=== PATIENT | female | born 1985 | race Hispanic/Latino ===

== ENCOUNTER 2021-05-16 13:23 | Inpatient (IN) | payer SELFPAY ==
[~2021-05-16 13:23] MED LIST: Heparin 10,000 UNITS/ 10 ML VIAL ONE
[2021-05-16 14:13] LABS: #Eosinphils 0.2 thou/uL (0.0-0.7); #Lymphocytes 1.6 thou/uL (1.20-3.40); #Monocytes 0.5 thou/uL (0.11-0.59); #Neutrophils 5.1 thou/uL (1.40-6.50); %Basophils 0.3 % (0.0-1.0); %Eosinophils 2.8 % (0.0-10.0); %Lymphocytes 21.9 % (21.0-51.0); %Monocytes 6.6 % (0.0-10.0); %Neutrophils 68.5 % (42.0-75.0); Mean Corpuscular HGB CONC 31.3 g/dL (32.0-36.0); Mean Corpuscular Volume 92.8 fL (78.0-98.0); Mean Platelet Volume 7.5 fL (7.4-10.4); Platelet Count 442 thou/uL (130-400); RBC Distribution Width 12.9 % (11.5-14.5); Red Blood Cell (RBC) Count 3.77 mill/uL (4.20-5.40); White Blood Cell (WBC) Count 7.4 thou/uL (4.8-10.8)
[2021-05-16 14:24] LABS: Phosphorus 4.5 mg/dL (2.3-4.7)
[2021-05-16 14:38] LABS: ALT (SGPT) 16 U/L (8-55); AST (SGOT) 20 U/L (5-34); Albumin 3.8 g/dL (3.5-5.0); Alkaline Phosphatase 173 U/L (40-110); Anion Gap 21 mmol/L (10-20); BUN (Urea Nitrogen) 96 mg/dL (7.0-18.7); Bilirubin, Total 0.5 mg/dL (0.2-1.2); Calc. Creatinine Clearance 0 mL/min (70-130); Carbon Dioxide 24 mmol/L (22-29); Chloride 91 mmol/L (98-107); Globulin 3.3 g/dL (2.4-3.5); Glucose 271 mg/dL (70-105); Magnesium 6.1 mg/dL (1.6-2.6); Potassium 6.2 mmol/L (3.5-5.1); Protein, Total 7.1 g/dL (6.0-8.3); Sodium 130 mmol/L (136-145)
[2021-05-16] MEDS ORDERED: Acetaminophen 325 MG TAB PO PRN (17:05)
[2021-05-16] MEDS ORDERED: Dextrose 50% Abboject 50 ML SYRINGE SLOW IVP PRN (17:05)
[2021-05-16] MEDS ORDERED: Senokot S 8.6-50 MG TAB PO PRN (17:05)
[2021-05-16] MEDS ORDERED: Calcium Carbonate 500 MG ChewTAB PO PRN (17:05)
[2021-05-16] MEDS ORDERED: Bisacodyl 10 MG SUPP PR PRN (17:05)
[2021-05-16] MEDS ORDERED: Dextrose 5% in Water 1,000 ML IV PRN (17:05)
[2021-05-16] MEDS ORDERED: Ondansetron PF 4 MG/2 ML Vial IVP PRN (17:05)
[2021-05-16] MEDS ORDERED: Guaifenesin DM 100-10/5 ML UDCUP PO PRN (17:05)
[2021-05-16] MEDS ORDERED: HumaLOG 300 UNITS/3 ML VIAL SC PRN (17:05)
[2021-05-16 17:29] LABS: SARS-CoV-2 NAA Rapid Test DETECTED (NotDetected)
[2021-05-16] MEDS ORDERED: Insulin Glargine 15 UNITS in Pre-Filled Syringe 1 EACH SC SCH (21:00)
[2021-05-16 22:24] LABS: HBCM Index 0.09 S/CO (0-0.79); HBSAg Index 0.24 S/CO (0-0.99); Hep B Surf Ag Non-Reactive S/CO (NonReactive); Hepatitis B Core IgM Abs Non-Reactive (NonReactive)
[2021-05-16 22:25] LABS: HBSAB Concentration Greater than 1000.00 mIU/mL; Hep B Surf AB Reactive (NonReactive)
[2021-05-16] MEDS ORDERED: hydrALAZINE 20 MG/ML VIAL SLOW IVP PRN (22:39)
[2021-05-17] MEDS ORDERED: HumaLOG 300 UNITS/3 ML VIAL ONE (00:05)
[2021-05-17] MEDS: HumaLOG 300 UNITS/3 ML VIAL SC PRN ×2 (00:34→11:29)
[2021-05-17] MEDS: Gabapentin 100 MG CAP PO SCH ×3 (01:49→22:08)
[2021-05-17] MEDS: Lantus 1000 UNITS/10 ML VIAL SC SCH ×3 (01:49→21:19)
[2021-05-17 04:38] LABS: Albumin 3.6 g/dL (3.5-5.0); Anion Gap 20 mmol/L (10-20); BUN (Urea Nitrogen) 33 mg/dL (7.0-18.7); BUN/Creatinine Ratio 4.95; Calc. Creatinine Clearance 0 mL/min (70-130); Calcium 8.1 mg/dL (7.8-10.44); Carbon Dioxide 22 mmol/L (22-29); Chloride 99 mmol/L (98-107); Glucose 108 mg/dL (70-105); Potassium 5.3 mmol/L (3.5-5.1); Sodium 136 mmol/L (136-145)
[2021-05-17 04:44] LABS: Hemoglobin A1c Greater than 14.0 % (4.0-6.0)
[2021-05-17 05:26] LABS: #Basophils 0.1 thou/uL (0.0-0.2); #Eosinphils 0.4 thou/uL (0.0-0.7); #Lymphocytes 1.6 thou/uL (1.20-3.40); #Monocytes 0.5 thou/uL (0.11-0.59); #Neutrophils 3.6 thou/uL (1.40-6.50); %Basophils 0.9 % (0.0-1.0); %Eosinophils 6.1 % (0.0-10.0); %Lymphocytes 26.3 % (21.0-51.0); %Neutrophils 58.7 % (42.0-75.0); Hemoglobin 10.5 g/dL (12.0-16.0); Mean Corpuscular HGB CONC 31.6 g/dL (32.0-36.0); Mean Corpuscular Hemoglobin 29.5 pg (27.0-31.0); Mean Corpuscular Volume 93.3 fL (78.0-98.0); Mean Platelet Volume 7.4 fL (7.4-10.4); Platelet Count 356 thou/uL (130-400); RBC Distribution Width 12.6 % (11.5-14.5); Red Blood Cell (RBC) Count 3.57 mill/uL (4.20-5.40); White Blood Cell (WBC) Count 6.1 thou/uL (4.8-10.8)
[2021-05-17] MEDS ORDERED: Enoxaparin Sodium 30 MG/0.3 ML SYRINGE ONE (08:21)
[2021-05-17] MEDS ORDERED: NIFEdipine XL 30 MG TAB ONE (08:21)
[2021-05-17] MEDS ORDERED: Dextrose 50% Abboject 50 ML SYRINGE ONE ×2 (08:34)
[2021-05-17] MEDS: NIFEdipine XL 30 MG TAB PO SCH (08:49)
[2021-05-17] MEDS: Enoxaparin Sodium 30 MG/0.3 ML SYRINGE SC SCH (08:50)
[2021-05-17] MEDS ORDERED: Heparin 10,000 UNITS/ 10 ML VIAL ONE (09:46)
[2021-05-17] MEDS ORDERED: Acetaminophen 325 MG TAB ONE (20:25)
[2021-05-17] MEDS ORDERED: Metoprolol Tartrate 25 MG TAB PO SCH (21:00)
[2021-05-17] MEDS ORDERED: Metoprolol Tartrate 25 MG TAB ONE (21:03)
[2021-05-18] MEDS: HumaLOG 300 UNITS/3 ML VIAL SC PRN (06:42)
[2021-05-18 07:26] VITALS: BMI 25.5
[2021-05-18] MEDS: Gabapentin 100 MG CAP PO SCH (08:59)
[2021-05-18] MEDS: NIFEdipine XL 30 MG TAB PO SCH (08:59)
[2021-05-18] MEDS: Enoxaparin Sodium 30 MG/0.3 ML SYRINGE SC SCH (08:59)
[2021-05-18] MEDS ORDERED: Metoprolol Tartrate 50 MG TAB PO SCH (09:00)
[2021-05-18] MEDS: Lantus 1000 UNITS/10 ML VIAL SC SCH (09:01)
[2021-05-18 12:30] VITALS: BP 133/79; TEMP 98.3
== END 2021-05-18 13:21 | disposition home or self-care (01) | DRG 640 ==
LOC: ERS 13:23 → ERHOLD 15:25 → OBSVTOIN 05-17 16:46 → T4-A 05-17 23:42
PROVIDERS: ADMIT Internal Medicine; ATTEND Internal Medicine
PROC: 5A1D70Z Performance of Urinary Filtration, Intermittent, Less than 6 Hours Per Day (ICD-10-PCS; principal; 2021-05-16)
PROC: 8E0ZXY6 Isolation (ICD-10-PCS; 2021-05-17)
DX: E87.5 Hyperkalemia (principal); N18.6 End stage renal disease; U07.1 COVID-19; I12.0 Hypertensive chronic kidney disease with stage 5 chronic kidney disease or end stage renal disease; N25.81 Secondary hyperparathyroidism of renal origin; E87.70 Fluid overload, unspecified; E11.22 Type 2 diabetes mellitus with diabetic chronic kidney disease; I07.1 Rheumatic tricuspid insufficiency; E11.42 Type 2 diabetes mellitus with diabetic polyneuropathy; D63.1 Anemia in chronic kidney disease; E11.649 Type 2 diabetes mellitus with hypoglycemia without coma; Z99.2 Dependence on renal dialysis; Z91.15 Patient's noncompliance with renal dialysis; Z79.899 Other long term (current) drug therapy; Z79.4 Long term (current) use of insulin; Z83.3 Family history of diabetes mellitus; Z82.49 Family history of ischemic heart disease and other diseases of the circulatory system
CPT/HCPCS: 36415; 36416; 71045; 80053; 80069; 83036; 83735; 83880; 84100; 84484; 85025; 86705; 86706; 87340; 93005; 96372; 96374; G0378; J1644; J1650; J1815; J7070; U0002

== ENCOUNTER 2021-06-12 22:00 | Inpatient (IN) | payer MEDICAID ==
[2021-06-12 23:27] LABS: #Eosinphils 0.1 thou/uL (0.0-0.7); #Lymphocytes 0.8 thou/uL (1.20-3.40); #Monocytes 0.4 thou/uL (0.11-0.59); #Neutrophils 11.1 thou/uL (1.40-6.50); %Basophils 0.3 % (0.0-1.0); %Eosinophils 0.6 % (0.0-10.0); %Lymphocytes 6.6 % (21.0-51.0); %Monocytes 3.3 % (0.0-10.0); %Neutrophils 89.2 % (42.0-75.0); Hemoglobin 8.4 g/dL (12.0-16.0); Mean Corpuscular Hemoglobin 29.5 pg (27.0-31.0); Mean Corpuscular Volume 92.1 fL (78.0-98.0); Mean Platelet Volume 9.2 fL (7.4-10.4); Platelet Count 303 thou/uL (130-400); RBC Distribution Width 13.4 % (11.5-14.5); Red Blood Cell (RBC) Count 2.83 mill/uL (4.20-5.40); White Blood Cell (WBC) Count 12.5 thou/uL (4.8-10.8)
[2021-06-12 23:35] LABS: Hemoglobin A1c Greater than 14.0 % (4.0-6.0)
[2021-06-12 23:46] LABS: ALT (SGPT) 120 U/L (8-55); AST (SGOT) 102 U/L (5-34); Albumin 4.3 g/dL (3.5-5.0); Alkaline Phosphatase 264 U/L (40-110); Anion Gap 28 mmol/L (10-20); Bilirubin, Total 0.8 mg/dL (0.2-1.2); Calc. Creatinine Clearance 0 mL/min (70-130); Calcium 7.7 mg/dL (7.8-10.44); Carbon Dioxide 17 mmol/L (22-29); Chloride 98 mmol/L (98-107); Globulin 3.4 g/dL (2.4-3.5); Glucose 63 mg/dL (70-105); Lipase 58 U/L (8-78); Magnesium 2.8 mg/dL (1.6-2.6); Protein, Total 7.7 g/dL (6.0-8.3); Sodium 135 mmol/L (136-145)
[2021-06-12 23:55] LABS: Potassium 7.9 mmol/L (3.5-5.1)
[2021-06-12 23:58] LABS: BUN (Urea Nitrogen) 114 mg/dL (7.0-18.7)
[2021-06-13] MEDS ORDERED: Dextrose 50% Abboject 50 ML SYRINGE ONE (00:14)
[2021-06-13] MEDS ORDERED: Insulin Regular 300 UNITS/3 ML VIAL ONE (00:14)
[2021-06-13] MEDS ORDERED: Calcium Chloride 1 GM/10 ML Abboject SYRINGE ONE (00:14)
[2021-06-13 00:24] LABS: INR-International Normal Ratio 1.3; PTT 34.3 sec (22.9-36.1); Prothrombin Time 16.1 sec (12.0-14.7)
[2021-06-13] MEDS ORDERED: Atropine Sulfate 1 mg/10 ml Syringe ONE (00:41)
[2021-06-13] MEDS ORDERED: Ondansetron PF 4 MG/2 ML Vial ONE (00:43)
[2021-06-13] MEDS ORDERED: Albuterol Sulfate 2.5 mg/0.5 ml Neb ONE (00:58)
[2021-06-13] MEDS ORDERED: Albuterol Sulfate 2.5 mg/3 ml Neb ONE (00:58)
[2021-06-13] MEDS ORDERED: Ondansetron PF 4 MG/2 ML Vial IVP PRN (01:15)
[2021-06-13] MEDS ORDERED: Dextrose 50% Abboject 50 ML SYRINGE SLOW IVP PRN (01:17)
[2021-06-13] MEDS ORDERED: Dextrose 5% in Water 1,000 ML IV PRN ×2 (01:17→05:00)
[2021-06-13] MEDS ORDERED: Acetaminophen 500 MG TAB PO PRN (01:23)
[2021-06-13 03:15] VITALS: BMI 266909.6
[2021-06-13 03:28] LABS: SARS-CoV-2 NAA Rapid Test Not Detected (NotDetected)
[2021-06-13] MEDS ORDERED: HumaLOG 300 UNITS/3 ML VIAL SC PRN (05:00)
[2021-06-13] MEDS ORDERED: Dextrose 50% Abboject 50 ML SYRINGE IVP PRN (05:00)
[2021-06-13] MEDS: EPOETIN ALFA-EPBX (ESRD) 10,000 UNIT/ML VIAL IVP SCH (07:51)
[2021-06-13] MEDS: Heparin 5,000 UNITS/ML VIAL SC SCH ×2 (07:51→20:57)
[2021-06-13 08:09] LABS: #Monocytes 0.5 thou/uL (0.11-0.59); #Neutrophils 8.7 thou/uL (1.40-6.50); %Basophils 0.2 % (0.0-1.0); %Eosinophils 0.3 % (0.0-10.0); %Monocytes 4.6 % (0.0-10.0); %Neutrophils 84.9 % (42.0-75.0); Hemoglobin 7.3 g/dL (12.0-16.0); Mean Corpuscular HGB CONC 31.5 g/dL (32.0-36.0); Mean Corpuscular Hemoglobin 28.7 pg (27.0-31.0); Mean Corpuscular Volume 91.1 fL (78.0-98.0); Mean Platelet Volume 8.7 fL (7.4-10.4); Platelet Count 271 thou/uL (130-400); RBC Distribution Width 13.2 % (11.5-14.5); Red Blood Cell (RBC) Count 2.54 mill/uL (4.20-5.40); White Blood Cell (WBC) Count 10.2 thou/uL (4.8-10.8)
[2021-06-13 08:31] LABS: Glucose 178 mg/dL (70-105)
[2021-06-13 08:37] LABS: Troponin I 0.012 ng/mL (< 0.028)
[2021-06-13] MEDS ORDERED: Heparin 10,000 UNITS/ 10 ML VIAL ONE (08:40)
[2021-06-13 08:44] LABS: ALT (SGPT) 89 U/L (8-55); AST (SGOT) 53 U/L (5-34); Albumin 3.5 g/dL (3.5-5.0); Alkaline Phosphatase 206 U/L (40-110); Anion Gap 16 mmol/L (10-20); BUN (Urea Nitrogen) 40 mg/dL (7.0-18.7); Bilirubin, Total 0.6 mg/dL (0.2-1.2); Calc. Creatinine Clearance 13 mL/min (70-130); Calcium 8.4 mg/dL (7.8-10.44); Carbon Dioxide 26 mmol/L (22-29); Chloride 99 mmol/L (98-107); Globulin 3.4 g/dL (2.4-3.5); Glucose 179 mg/dL (70-105); Potassium 4.2 mmol/L (3.5-5.1); Protein, Total 6.9 g/dL (6.0-8.3); Sodium 137 mmol/L (136-145)
[2021-06-13 08:49] LABS: HBSAg Index 0.23 S/CO (0-0.99); Hep B Core Total Ab Non-Reactive (NonReactive); Hep B Core Total Index 0.07 S/CO (0-0.79); Hep B Surf Ag Non-Reactive S/CO (NonReactive); Hep C IgG Ab Non-Reactive (NonReactive); Hep C Index 0.25 S/CO (0-0.79)
[2021-06-13 09:03] LABS: HBSAB Concentration 930.54 mIU/mL; Hep B Surf AB Reactive (NonReactive)
[2021-06-13] MEDS: HumaLOG 300 UNITS/3 ML VIAL SC PRN (09:48)
[2021-06-13 11:58] LABS: Troponin I 0.014 ng/mL (< 0.028)
[2021-06-13 17:15] LABS: Glucose 127 mg/dL (70-105)
[2021-06-14] MEDS: HumaLOG 300 UNITS/3 ML VIAL SC PRN ×3 (05:47→21:28)
[2021-06-14 08:19] LABS: #Basophils 0.1 thou/uL (0.0-0.2); #Eosinphils 0.2 thou/uL (0.0-0.7); #Lymphocytes 1.3 thou/uL (1.20-3.40); #Monocytes 0.8 thou/uL (0.11-0.59); %Basophils 0.7 % (0.0-1.0); %Eosinophils 1.9 % (0.0-10.0); %Lymphocytes 15.4 % (21.0-51.0); %Monocytes 9.4 % (0.0-10.0); %Neutrophils 72.5 % (42.0-75.0); Hemoglobin 6.9 g/dL (12.0-16.0); Mean Corpuscular HGB CONC 31.2 g/dL (32.0-36.0); Mean Corpuscular Hemoglobin 28.9 pg (27.0-31.0); Mean Corpuscular Volume 92.6 fL (78.0-98.0); Mean Platelet Volume 8.9 fL (7.4-10.4); Platelet Count 261 thou/uL (130-400); RBC Distribution Width 13.2 % (11.5-14.5); Red Blood Cell (RBC) Count 2.39 mill/uL (4.20-5.40); White Blood Cell (WBC) Count 8.3 thou/uL (4.8-10.8)
[2021-06-14 08:49] LABS: ALT (SGPT) 66 U/L (8-55); AST (SGOT) 29 U/L (5-34); Albumin 3.3 g/dL (3.5-5.0); Alkaline Phosphatase 175 U/L (40-110); Anion Gap 19 mmol/L (10-20); BUN (Urea Nitrogen) 61 mg/dL (7.0-18.7); Bilirubin, Total 0.5 mg/dL (0.2-1.2); Calc. Creatinine Clearance 9 mL/min (70-130); Calcium 8.2 mg/dL (7.8-10.44); Carbon Dioxide 24 mmol/L (22-29); Chloride 100 mmol/L (98-107); Globulin 2.9 g/dL (2.4-3.5); Glucose 249 mg/dL (70-105); Potassium 5.6 mmol/L (3.5-5.1); Protein, Total 6.2 g/dL (6.0-8.3); Sodium 137 mmol/L (136-145)
[2021-06-14] MEDS ORDERED: FLU VACC QS2021-22(6MOS UP)/PF 60 MCG/0.5 ML SYRINGE IM ONE (09:00)
[2021-06-14] MEDS ORDERED: Ferrous Sulfate 325 MG TAB PO SCH (10:15)
[2021-06-14] MEDS: Heparin 5,000 UNITS/ML VIAL SC SCH ×2 (10:25→21:28)
[2021-06-14 10:46] LABS: Glucose 292 mg/dL (70-105)
[2021-06-14] MEDS ORDERED: Heparin 10,000 UNITS/ 10 ML VIAL ONE (11:44)
[2021-06-14] MEDS ORDERED: hydrALAZINE 20 MG/ML VIAL SLOW IVP PRN (18:15)
[2021-06-14] MEDS: Ferrous Sulfate 325 MG TAB PO SCH (18:29)
[2021-06-14] MEDS ORDERED: Furosemide 40 MG TAB PO SCH (18:30)
[2021-06-14] MEDS: Metoprolol Tartrate 50 MG TAB PO SCH (21:31)
[2021-06-14] MEDS: NIFEdipine XL 30 MG TAB PO SCH (21:31)
[2021-06-14] MEDS: Lantus 1000 UNITS/10 ML VIAL SC SCH (21:31)
[2021-06-14] MEDS ORDERED: Doxycycline 100 MG CAP PO SCH (23:00)
[2021-06-15 06:09] LABS: #Basophils 0.1 thou/uL (0.0-0.2); #Eosinphils 0.2 thou/uL (0.0-0.7); #Lymphocytes 1.7 thou/uL (1.20-3.40); #Monocytes 0.8 thou/uL (0.11-0.59); #Neutrophils 5.8 thou/uL (1.40-6.50); %Basophils 0.8 % (0.0-1.0); %Eosinophils 2.2 % (0.0-10.0); %Lymphocytes 19.9 % (21.0-51.0); %Monocytes 9.1 % (0.0-10.0); Hemoglobin 8.7 g/dL (12.0-16.0); Mean Corpuscular HGB CONC 31.9 g/dL (32.0-36.0); Mean Corpuscular Hemoglobin 29.7 pg (27.0-31.0); Mean Platelet Volume 8.6 fL (7.4-10.4); Platelet Count 283 thou/uL (130-400); RBC Distribution Width 12.9 % (11.5-14.5); Red Blood Cell (RBC) Count 2.94 mill/uL (4.20-5.40); White Blood Cell (WBC) Count 8.5 thou/uL (4.8-10.8)
[2021-06-15 06:34] LABS: ALT (SGPT) 49 U/L (8-55); AST (SGOT) 15 U/L (5-34); Albumin 3.2 g/dL (3.5-5.0); Alkaline Phosphatase 170 U/L (40-110); Anion Gap 18 mmol/L (10-20); BUN (Urea Nitrogen) 41 mg/dL (7.0-18.7); Bilirubin, Total 0.8 mg/dL (0.2-1.2); Calc. Creatinine Clearance 13 mL/min (70-130); Calcium 8.6 mg/dL (7.8-10.44); Carbon Dioxide 26 mmol/L (22-29); Chloride 98 mmol/L (98-107); Globulin 3.1 g/dL (2.4-3.5); Glucose 133 mg/dL (70-105); Protein, Total 6.3 g/dL (6.0-8.3); Sodium 137 mmol/L (136-145)
[2021-06-15] MEDS ORDERED: Furosemide 40 MG TAB PO SCH (07:30)
[2021-06-15] MEDS: Heparin 5,000 UNITS/ML VIAL SC SCH (08:26)
[2021-06-15] MEDS: Ferrous Sulfate 325 MG TAB PO SCH (08:26)
[2021-06-15] MEDS: NIFEdipine XL 30 MG TAB PO SCH (08:26)
[2021-06-15] MEDS: EPOETIN ALFA-EPBX (ESRD) 10,000 UNIT/ML VIAL IVP SCH (08:26)
[2021-06-15] MEDS: Lantus 1000 UNITS/10 ML VIAL SC SCH (08:27)
[2021-06-15] MEDS: Metoprolol Tartrate 50 MG TAB PO SCH (08:27)
[2021-06-15 08:49] VITALS: BP 138/69; TEMP 98.6
[2021-06-15] MEDS ORDERED: NIFEdipine XL 30 MG TAB PO SCH (09:00)
[2021-06-15] MEDS ORDERED: Folic Acid 1 MG TAB PO SCH (09:00)
[2021-06-15] MEDS ORDERED: Gabapentin 100 MG CAP PO SCH (09:00)
[2021-06-15] MEDS ORDERED: Doxycycline 100 MG CAP PO SCH (09:00)
== END 2021-06-15 14:25 | disposition home or self-care (01) | DRG 640 ==
LOC: ERS 22:00 → CCU 06-13 01:14 → T4-A 06-13 11:59
PROVIDERS: ADMIT Internal Medicine; ATTEND Internal Medicine
PROC: 30233N1 Transfusion of Nonautologous Red Blood Cells into Peripheral Vein, Percutaneous Approach (ICD-10-PCS; principal; 2021-06-14)
DX: E87.5 Hyperkalemia (principal); N18.6 End stage renal disease; I12.0 Hypertensive chronic kidney disease with stage 5 chronic kidney disease or end stage renal disease; D63.1 Anemia in chronic kidney disease; E11.22 Type 2 diabetes mellitus with diabetic chronic kidney disease; L73.9 Follicular disorder, unspecified; Z20.822 Contact with and (suspected) exposure to COVID-19; E87.70 Fluid overload, unspecified; E11.319 Type 2 diabetes mellitus with unspecified diabetic retinopathy without macular edema; E11.42 Type 2 diabetes mellitus with diabetic polyneuropathy; R00.1 Bradycardia, unspecified; E11.21 Type 2 diabetes mellitus with diabetic nephropathy; E87.2 Acidosis; Z99.2 Dependence on renal dialysis; Z91.15 Patient's noncompliance with renal dialysis; Z79.899 Other long term (current) drug therapy; Z79.4 Long term (current) use of insulin; Z86.16 Personal history of COVID-19
CPT/HCPCS: 36415; 36416; 36430; 71045; 80053; 83036; 83690; 83735; 84484; 85025; 85610; 85730; 86704; 86706; 86803; 86850; 86900; 86901; 87340; 93005; 96374; 96375; J0360; J0461; J1644; J1815; J2405; J7611; P9016; Q5105; U0002

== ENCOUNTER 2021-06-21 13:00 | Inpatient (IN) | payer MEDICAID ==
[2021-06-21] MEDS ORDERED: Dextrose 50% Abboject 50 ML SYRINGE ONE (14:21)
[2021-06-21] MEDS ORDERED: Insulin Regular 300 UNITS/3 ML VIAL ONE ×2 (14:21→14:23)
[2021-06-21] MEDS ORDERED: Calcium Chloride 1 GM/10 ML Abboject SYRINGE ONE (14:21)
[2021-06-21 14:22] LABS: Actual Bicarbonate (HCO3v) 19 mEq/L (22-28); Analyzer IN Cardio ER; Base Excess -6.9 mEq/L (-2.0 to +3.0); Calcium, Ionized (venous) 0.94 mmol/L (1.16-1.32); Chloride (VBG) 97 mmol/L (98-106); Hemoglobin (Hb) 8.5 g/dL (11.7-15.5); Potassium (VBG) 7.18 mmol/L (3.70-5.30); Sodium 134.6 mmol/L (133-146); pH (venous) 7.31 (7.32-7.43)
[2021-06-21 14:26] LABS: #Eosinphils 0.2 thou/uL (0.0-0.7); #Lymphocytes 1.2 thou/uL (1.20-3.40); #Monocytes 0.2 thou/uL (0.11-0.59); #Neutrophils 7.4 thou/uL (1.40-6.50); %Basophils 0.5 % (0.0-1.0); %Eosinophils 1.9 % (0.0-10.0); %Lymphocytes 12.9 % (21.0-51.0); %Monocytes 2.7 % (0.0-10.0); Hemoglobin 8.3 g/dL (12.0-16.0); Mean Corpuscular HGB CONC 31.4 g/dL (32.0-36.0); Mean Corpuscular Hemoglobin 29.9 pg (27.0-31.0); Mean Corpuscular Volume 95.1 fL (78.0-98.0); Mean Platelet Volume 7.1 fL (7.4-10.4); Platelet Count 319 thou/uL (130-400); RBC Distribution Width 15.1 % (11.5-14.5); Red Blood Cell (RBC) Count 2.76 mill/uL (4.20-5.40); White Blood Cell (WBC) Count 9.1 thou/uL (4.8-10.8)
[2021-06-21 14:49] LABS: ALT (SGPT) 56 U/L (8-55); AST (SGOT) 54 U/L (5-34); Albumin 3.7 g/dL (3.5-5.0); Alkaline Phosphatase 211 U/L (40-110); Anion Gap 28 mmol/L (10-20); Bilirubin, Total 0.7 mg/dL (0.2-1.2); Calc. Creatinine Clearance 0 mL/min (70-130); Calcium 7.9 mg/dL (7.8-10.44); Carbon Dioxide 19 mmol/L (22-29); Chloride 98 mmol/L (98-107); Globulin 3.3 g/dL (2.4-3.5); Glucose 128 mg/dL (70-105); Sodium 137 mmol/L (136-145)
[2021-06-21 14:52] LABS: Potassium 7.5 mmol/L (3.5-5.1)
[2021-06-21 16:05] LABS: BUN (Urea Nitrogen) 125 mg/dL (7.0-18.7)
[2021-06-21] MEDS ORDERED: FLU VACC QS2021-22(6MOS UP)/PF 60 MCG/0.5 ML SYRINGE IM ONE (16:30)
[2021-06-21 17:00] VITALS: BMI 27.7
[2021-06-21] MEDS ORDERED: HumaLOG 300 UNITS/3 ML VIAL SC PRN ×2 (17:05)
[2021-06-21] MEDS ORDERED: Dextrose 50% Abboject 50 ML SYRINGE SLOW IVP PRN (17:05)
[2021-06-21] MEDS ORDERED: Acetaminophen 325 MG TAB PO PRN (17:05)
[2021-06-21] MEDS ORDERED: Dextrose 5% in Water 1,000 ML IV PRN (17:05)
[2021-06-21 18:47] LABS: Troponin I 0.011 ng/mL (< 0.028)
[2021-06-21] MEDS ORDERED: ceFAZolin 2 GM/Dextrose 50 ML 2 GM in Premix Bag 1 BAG IVPB SCH (19:45)
[2021-06-21] MEDS: Heparin 5,000 UNITS/ML VIAL SC SCH (20:50)
[2021-06-21 20:52] LABS: Troponin I 0.015 ng/mL (< 0.028)
[2021-06-22 01:10] LABS: SARS-CoV-2 NAA Rapid Test DETECTED (NotDetected)
[2021-06-22] MEDS: Labetalol HCl 100 MG/20 ML VIAL SLOW IVP PRN (02:48)
[2021-06-22 05:18] LABS: #Eosinphils 0.1 thou/uL (0.0-0.7); #Lymphocytes 1.2 thou/uL (1.20-3.40); #Monocytes 0.4 thou/uL (0.11-0.59); #Neutrophils 6.1 thou/uL (1.40-6.50); %Basophils 0.6 % (0.0-1.0); %Eosinophils 1.1 % (0.0-10.0); %Lymphocytes 15.1 % (21.0-51.0); %Monocytes 5.3 % (0.0-10.0); %Neutrophils 77.9 % (42.0-75.0); Hemoglobin 8.1 g/dL (12.0-16.0); Mean Corpuscular HGB CONC 32.2 g/dL (32.0-36.0); Mean Corpuscular Hemoglobin 30.2 pg (27.0-31.0); Mean Platelet Volume 7.1 fL (7.4-10.4); Platelet Count 303 thou/uL (130-400); Red Blood Cell (RBC) Count 2.69 mill/uL (4.20-5.40); White Blood Cell (WBC) Count 7.8 thou/uL (4.8-10.8)
[2021-06-22 05:30] LABS: Anion Gap 16 mmol/L (10-20); BUN (Urea Nitrogen) 52 mg/dL (7.0-18.7); Calc. Creatinine Clearance 11 mL/min (70-130); Carbon Dioxide 27 mmol/L (22-29); Chloride 99 mmol/L (98-107); Glucose 213 mg/dL (70-105); Potassium 4.7 mmol/L (3.5-5.1); Sodium 137 mmol/L (136-145)
[2021-06-22] MEDS: Heparin 5,000 UNITS/ML VIAL SC SCH ×2 (10:37→20:36)
[2021-06-22] MEDS ORDERED: ceFAZolin 2 GM/Dextrose 50 ML 2 GM in Premix Bag 1 BAG IVPB SCH (14:00)
[2021-06-22] MEDS ORDERED: Acetaminophen 500 MG TAB PO PRN (16:41)
[2021-06-22] MEDS: Lantus 1000 UNITS/10 ML VIAL SC SCH (20:43)
[2021-06-23] MEDS: Labetalol HCl 100 MG/20 ML VIAL SLOW IVP PRN (04:53)
[2021-06-23] MEDS ORDERED: HumaLOG 300 UNITS/3 ML VIAL SC PRN (05:45)
[2021-06-23] MEDS ORDERED: Xylocaine 1% w/ Epi 1:100K 10 ML VIAL ONE (06:54)
[2021-06-23] MEDS ORDERED: Heparin 5,000 UNITS/ML VIAL ONE (06:54)
[2021-06-23] MEDS ORDERED: Bupivacaine PF 0.5% 30 ML VIAL ONE (06:54)
[2021-06-23] MEDS ORDERED: Heparin 10,000 UNITS/ 10 ML VIAL ONE ×3 (06:55→09:41)
[2021-06-23] MEDS ORDERED: Protamine Sulfate 50 MG/5 ML VIAL ONE (06:55)
[2021-06-23] MEDS ORDERED: Meperidine HCl/PF 25 MG/ML VIAL ONE (07:31)
[2021-06-23] MEDS ORDERED: Midazolam HCl 2 mg/2 ml Vial ONE (07:31)
[2021-06-23] MEDS: Heparin 5,000 UNITS/ML VIAL SC SCH (07:44)
[2021-06-23] MEDS: Folic Acid 1 MG TAB PO SCH ×3 (07:44→14:31)
[2021-06-23] MEDS: Lantus 1000 UNITS/10 ML VIAL SC SCH ×3 (07:45→20:25)
[2021-06-23] MEDS ORDERED: Lidocaine 1% (PF) 30 ML VIAL ONE (07:53)
[2021-06-23] MEDS ORDERED: ceFAZolin 2 GM/Dextrose 50 ML IVPB ONE (08:09)
[2021-06-23] MEDS ORDERED: Lidocaine 1% PF 5 ML VIAL ONE (08:20)
[2021-06-23] MEDS ORDERED: PHENYLEPHRINE-NS 100 MCG/ML 10 ML SYRINGE ONE (08:20)
[2021-06-23] MEDS ORDERED: ePHEDrine 50 MG/ML VIAL ONE (08:20)
[2021-06-23] MEDS ORDERED: PROPOFOL 200 MG/20 ML VIAL ONE (08:20)
[2021-06-23] MEDS ORDERED: Ondansetron PF 4 MG/2 ML Vial ONE ×2 (08:20→10:07)
[2021-06-23] MEDS ORDERED: Promethazine HCl 25 MG/ML VIAL IM PRN (10:07)
[2021-06-23] MEDS ORDERED: Promethazine HCl 25 MG/ML VIAL IVPB PRN (10:07)
[2021-06-23] MEDS ORDERED: Ondansetron HCl/PF 4 MG/2 ML Vial IVP PRN (10:07)
[2021-06-23] MEDS ORDERED: Epoetin (ESRD) 20,000 UNITS/ML SC SCH (10:45)
[2021-06-23] MEDS ORDERED: EPOETIN ALFA-EPBX (ESRD) 10,000 UNIT/ML VIAL SC SCH (11:00)
[2021-06-23] MEDS: traMADol HCl 50 MG TAB PO PRN ×2 (12:49→14:29)
[2021-06-23] MEDS ORDERED: Ondansetron PF 4 MG/2 ML Vial IVP PRN (13:03)
[2021-06-23] MEDS ORDERED: Metoprolol Tartrate 50 MG TAB PO SCH (15:00)
[2021-06-23] MEDS ORDERED: NIFEdipine XL 30 MG TAB PO SCH (15:00)
[2021-06-23] MEDS ORDERED: Fentanyl 100 MCG/2 ML VIAL SLOW IVP PRN (16:05)
[2021-06-23] MEDS ORDERED: Famotidine/PF 20 mg/2ml Vial SLOW IVP SCH (16:30)
[2021-06-23 17:55] LABS: Anion Gap 25 mmol/L (10-20); BUN (Urea Nitrogen) 36 mg/dL (7.0-18.7); Calc. Creatinine Clearance 12 mL/min (70-130); Calcium 8.3 mg/dL (7.8-10.44); Carbon Dioxide 20 mmol/L (22-29); Chloride 98 mmol/L (98-107); Glucose 428 mg/dL (70-105); Potassium 6.5 mmol/L (3.5-5.1); Sodium 136 mmol/L (136-145)
[2021-06-23 18:55] LABS: Potassium 6.2 mmol/L (3.5-5.1)
[2021-06-23] MEDS ORDERED: Calcium Gluconate 4.6 MEQ in Sodium Chloride 0.9% 100 ML IVPB SCH (20:00)
[2021-06-24] MEDS: Metoprolol Tartrate 50 MG TAB PO SCH ×2 (00:48→09:01)
[2021-06-24] MEDS: Heparin 5,000 UNITS/ML VIAL SC SCH ×2 (00:48→09:00)
[2021-06-24 05:34] VITALS: TEMP 98.4
[2021-06-24 06:07] LABS: Anion Gap 21 mmol/L (10-20); BUN (Urea Nitrogen) 16 mg/dL (7.0-18.7); Calc. Creatinine Clearance 21 mL/min (70-130); Calcium 8.7 mg/dL (7.8-10.44); Carbon Dioxide 22 mmol/L (22-29); Chloride 97 mmol/L (98-107); Glucose 168 mg/dL (70-105); Potassium 4.4 mmol/L (3.5-5.1); Sodium 136 mmol/L (136-145)
[2021-06-24] MEDS ORDERED: Famotidine/PF 20 mg/2ml Vial SLOW IVP SCH (09:00)
[2021-06-24] MEDS ORDERED: NIFEdipine XL 30 MG TAB PO SCH (09:00)
[2021-06-24] MEDS: Lantus 1000 UNITS/10 ML VIAL SC SCH (09:01)
[2021-06-24] MEDS: Folic Acid 1 MG TAB PO SCH (09:01)
[2021-06-24 09:12] VITALS: BP 126/69
== END 2021-06-24 12:29 | disposition home or self-care (01) | DRG 628 ==
LOC: ERS 13:00 → IMCU/EMU 14:59 → T4-B 06-22 10:52
PROVIDERS: ADMIT Internal Medicine; ATTEND Internal Medicine
PROC: 06HY33Z Insertion of Infusion Device into Lower Vein, Percutaneous Approach (ICD-10-PCS; principal; 2021-06-21)
PROC: 8E0ZXY6 Isolation (ICD-10-PCS; 2021-06-21)
PROC: 5A1D70Z Performance of Urinary Filtration, Intermittent, Less than 6 Hours Per Day (ICD-10-PCS; 2021-06-21)
PROC: 5A1D70Z Performance of Urinary Filtration, Intermittent, Less than 6 Hours Per Day (ICD-10-PCS; 2021-06-22)
PROC: 031C3ZF Bypass Left Radial Artery to Lower Arm Vein, Percutaneous Approach (ICD-10-PCS; 2021-06-23)
PROC: 0JH63XZ Insertion of Tunneled Vascular Access Device into Chest Subcutaneous Tissue and Fascia, Percutaneous Approach (ICD-10-PCS; 2021-06-23)
PROC: 02HV33Z Insertion of Infusion Device into Superior Vena Cava, Percutaneous Approach (ICD-10-PCS; 2021-06-23)
PROC: B5181ZA Fluoroscopy of Superior Vena Cava using Low Osmolar Contrast, Guidance (ICD-10-PCS; 2021-06-23)
PROC: 05PY33Z Removal of Infusion Device from Upper Vein, Percutaneous Approach (ICD-10-PCS; 2021-06-23)
PROC: B548ZZA Ultrasonography of Superior Vena Cava, Guidance (ICD-10-PCS; 2021-06-23)
PROC: 30233N1 Transfusion of Nonautologous Red Blood Cells into Peripheral Vein, Percutaneous Approach (ICD-10-PCS; 2021-06-23)
DX: E87.5 Hyperkalemia (principal); N18.6 End stage renal disease; J96.01 Acute respiratory failure with hypoxia; U07.1 COVID-19; T82.898A Other specified complication of vascular prosthetic devices, implants and grafts, initial encounter; I12.0 Hypertensive chronic kidney disease with stage 5 chronic kidney disease or end stage renal disease; J81.1 Chronic pulmonary edema; E87.2 Acidosis; E11.22 Type 2 diabetes mellitus with diabetic chronic kidney disease; E11.40 Type 2 diabetes mellitus with diabetic neuropathy, unspecified; E87.70 Fluid overload, unspecified; D63.1 Anemia in chronic kidney disease; Y83.8 Other surgical procedures as the cause of abnormal reaction of the patient, or of later complication, without mention of misadventure at the time of the procedure; Z99.2 Dependence on renal dialysis
CPT/HCPCS: 36415; 36416; 36430; 71045; 80048; 80053; 82805; 84484; 85025; 86850; 86900; 86901; 90935; 93005; 93010; 93970; C1713; C1752; C1776; G0257; J0610; J0690; J1642; J1644; J1815; J2001; J2175; J2250; J2405; J2704; J2720; J3490; P9016; Q5105; S0020; S0028; U0002